=== PATIENT | male | born 1995 | race Hispanic/Latino ===

== ENCOUNTER 2017-08-02 11:59 | Emergency (ER) | payer OTHER ==
[2017-08-02] MEDS ORDERED: Adacel (T-DAP) 0.5 ML VIAL ONE (12:12)
[2017-08-02] MEDS ORDERED: Lidocaine 1% w/Epinephrine 1:100K 20 ML VIAL ONE (12:12)
[2017-08-02] MEDS ORDERED: Bacitracin Zinc 1 Packet ONE (12:14)
== END 2017-08-02 12:42 | disposition home or self-care (01) ==
LOC: ERS 11:59
DX: S61.511A Laceration without foreign body of right wrist, initial encounter (principal); J45.909 Unspecified asthma, uncomplicated; F41.9 Anxiety disorder, unspecified; F17.210 Nicotine dependence, cigarettes, uncomplicated; Z71.6 Tobacco abuse counseling; W25.XXXA Contact with sharp glass, initial encounter; Y92.009 Unspecified place in unspecified non-institutional (private) residence as the place of occurrence of the external cause
CPT/HCPCS: 12002; 90715; 99406; J2001

== ENCOUNTER 2017-11-13 07:52 | Emergency (ER) | payer OTHER ==
[2017-11-13] MEDS ORDERED: Lidocaine Viscous Sol 2% 15 ml UD Cup ONE (08:13)
[2017-11-13] MEDS ORDERED: Mag-Al 1200 mg/1200 mg/30 ML UDCUP ONE (08:13)
[2017-11-13] MEDS ORDERED: Pantoprazole 40 MG VIAL ONE (08:13)
[2017-11-13] MEDS ORDERED: Ondansetron HCl/PF 4 MG/2 ML Vial ONE (08:13)
[2017-11-13 08:43] LABS: #Eosinphils 0.1 thou/uL (0.0-0.7); #Lymphocytes 1.6 thou/uL (1.20-3.40); #Monocytes 0.6 thou/uL (0.11-0.59); #Neutrophils 5.2 thou/uL (1.40-6.50); %Basophils 0.4 % (0.0-1.0); %Eosinophils 0.7 % (0.0-10.0); %Lymphocytes 21.4 % (21.0-51.0); %Monocytes 7.8 % (0.0-10.0); %Neutrophils 69.8 % (42.0-75.0); Hemoglobin 17.4 g/dL (14.0-18.0); Mean Corpuscular HGB CONC 35.2 g/dL (32.0-36.0); Mean Corpuscular Hemoglobin 31.2 pg (27.0-31.0); Mean Corpuscular Volume 88.9 fL (78.0-98.0); Mean Platelet Volume 8.4 fL (7.4-10.4); Platelet Count 211 thou/uL (130-400); RBC Distribution Width 12.2 % (11.5-14.5); Red Blood Cell (RBC) Count 5.56 mill/uL (4.70-6.10); White Blood Cell (WBC) Count 7.5 thou/uL (4.8-10.8)
[2017-11-13 09:11] LABS: ALT (SGPT) 21 U/L (8-55); AST (SGOT) 25 U/L (5-34); Albumin 5.1 g/dL (3.5-5.0); Alkaline Phosphatase 56 U/L (40-150); Anion Gap 15 mmol/L (10-20); BUN (Urea Nitrogen) 19 mg/dL (8.9-20.6); Bilirubin, Total 1.5 mg/dL (0.2-1.2); Calc. Creatinine Clearance 0 mL/min (70-130); Calcium 10.3 mg/dL (7.8-10.44); Carbon Dioxide 25 mmol/L (22-29); Chloride 102 mmol/L (98-107); Estimated GFR-MDRD Greater than 90; Globulin 3.3 g/dL (2.4-3.5); Glucose 100 mg/dL (70-105); Lipase 16 U/L (8-78); Potassium 3.6 mmol/L (3.5-5.1); Protein, Total 8.4 g/dL (6.0-8.3); Sodium 138 mmol/L (136-145)
[2017-11-13 10:16] LABS: Bilirubin Negative (Negative); Blood, Urine Negative (Negative); Clarity CLEAR (Clear); Glucose, Urine (Dipstick) Negative (Negative); Leukocyte Negative (Negative); Nitrite Negative (Negative); Protein, Urine (Dipstick) Negative (Neg-Trace); Urobilinogen 0.2 mg/dL (0.2-1.0); pH, Urine 6.5 (5.0-9.0)
[2017-11-13 10:22] LABS: Specific Gravity, Urine 1.051 (1.002-1.036)
--- NOTE | 2017-11-13 10:34 | CT ---
ABDOMEN CT WITH CONTRAST PELVIC CT WITH CONTRAST: COMPARISON: 11/17/14. HISTORY: Abdominal pain. Vomiting. FINDINGS: CT ABDOMEN: Lung bases are clear. Heart size normal. No pericardial effusion. The visualized aorta has a yandy l caliber. No periaortic fat stranding. Symmetric attenuation of the psoas muscles. Intra- and extrahepatic portal vein is patent. Liver, s pleen, pancreas, and adrenal glands have appropriate attenuation. No gastrohepatic, retrocrural, or periportal lymphadenopathy. No mesenteric mass, lymphadenopathy, free air, or free fluid. Symmetric enhancement of the kidneys. Bilaterally, no obstructive uropathy. Alimentary canal is unremarkable. Multiple normal-caliber small bowel loops. Ileocecal junction is normal. Scattered fecal material in a nondistended, nondilated colon. Diverticulosis, without evide nce of diverticulitis. Normal-caliber appendix. PELVIC CT: No mass, lymphadenopathy, free air, or free fluid. The urinary bladder is unremarkable. No lytic or blastic lesions in the osseous structures. IMPRESSION: No acute abnormality in the abdomen or pelvis. POS: [facility]
== END 2017-11-13 11:03 | disposition home or self-care (01) ==
LOC: ERS 07:52
DX: K29.70 Gastritis, unspecified, without bleeding (principal); J45.909 Unspecified asthma, uncomplicated; F41.9 Anxiety disorder, unspecified; K21.9 Gastro-esophageal reflux disease without esophagitis
CPT/HCPCS: 74177; 80053; 81003; 83690; 85025; 96361; 96374; 96375; C9113; J2405